=== PATIENT | male | born 2005 | race Caucasian/White ===

== ENCOUNTER 2024-05-12 13:02 | Emergency (ER) | payer OTHER | END 2024-05-12 14:05 | disposition home or self-care (01) | LOC: KA.ED 13:02 | DX: S90.122A Contusion of left lesser toe(s) without damage to nail, initial encounter (principal); F17.210 Nicotine dependence, cigarettes, uncomplicated; W22.8XXA Striking against or struck by other objects, initial encounter | CPT/HCPCS: 73620-LT; 99283 ==

== ENCOUNTER 2025-09-05 13:57 | Emergency (ER) | payer SELFPAY ==
[2025-09-05] MEDS: Ketorolac 30 MG/ML SDV IM ONE (14:24)
[2025-09-05 14:30] LABS: BASOPHILS ABSOLUTE AUTO 0.02 10^3/uL (0.00-0.10); BASOPHILS PERCENT AUTO 0.3 % (0.0-1.0); EOSINOPHILS ABSOLUTE AUTO 0.10 10^3/uL (0.10-0.30); EOSINOPHILS PERCENT AUTO 1.7 % (1.0-3.0); IMMATURE GRAN ABSOLUTE AUTO 0.02 10^3/uL (0.00-0.04); IMMATURE GRAN PERCENT AUTO 0.3 % (0.0-0.4); LYMPHOCYTES ABSOLUTE AUTO 1.86 10^3/uL (1.00-4.00); LYMPHOCYTES PERCENT AUTO 31.7 % (20.0-40.0); MEAN PLATELET VOLUME 8.6 fL (7.4-10.4); MONOCYTES ABSOLUTE AUTO 0.53 10^3/uL (0.10-0.80); MONOCYTES PERCENT AUTO 9.0 % (2.0-8.0); NEUTROPHILS ABSOLUTE AUTO 3.34 10^3/uL (2.50-7.00); NEUTROPHILS PERCENT AUTO 57.0 % (50.0-70.0); PLATELET COUNT,PLT 292 10^3/uL (150-400); RED BLOOD CELL COUNT 5.43 10^6/uL (4.50-6.00); RED CELL DISTRIBUTION WIDTH 11.5 % (11.5-14.5); WHITE BLOOD CELL COUNT,WBC 5.87 10^3/uL (5.00-10.00)
[2025-09-05 14:57] LABS: AMPHETAMINES SCREEN, URINE NEGATIVE (NEGATIVE); COCAINE METABOLITES,URINE NEGATIVE (NEGATIVE); METHADONE SCREEN, URINE NEGATIVE (NEGATIVE); METHAMPHETAMINES SCREEN, URINE NEGATIVE (NEGATIVE); OXYCODONE SCREEN,URINE NEGATIVE (NEGATIVE); PCP SCREEN,URINE NEGATIVE (NEGATIVE); TCA SCREEN,URINE NEGATIVE (NEGATIVE); THC SCREEN,URINE 50 NG/ML NEGATIVE (NEGATIVE)
== END 2025-09-05 15:18 | disposition home or self-care (01) ==
LOC: KA.ED 14:00
DX: K02.9 Dental caries, unspecified (principal); Z91.048 Other nonmedicinal substance allergy status; Z79.899 Other long term (current) drug therapy
CPT/HCPCS: 36415; 70140; 80305; 85025; 96372; 99284; J1885; 99283